=== PATIENT | male | born 1960 | race Caucasian/White ===

== ENCOUNTER → 2025-07-07 12:46 | Outpatient (REF) | payer BC, SELFPAY | LOC: EMG 12:46 | PROVIDERS: ATTENDING PHYSICIAN Podiatrist Primary Podiatric Medicine; FAMILY PHYSICIAN Family Medicine | DX: G58.8 Other specified mononeuropathies (principal); G57.53 Tarsal tunnel syndrome, bilateral lower limbs; M79.2 Neuralgia and neuritis, unspecified; R20.0 Anesthesia of skin | CPT/HCPCS: 95886; 95911 ==